=== PATIENT | female | born 1940 | race Caucasian/White ===

== ENCOUNTER → 2016-08-31 15:19 | Outpatient (CLI) | payer MEDICARE, BC ==
[2014-01-07 11:06] VITALS: BMI 28.0
[~2016-08-31 15:19] MED LIST: BAYER CHEWABLE81 MG PO; BENICAR HCT 40-1 TA1 PO; ELAVIL25 MG PO; LIPITOR10 MG PO; NORVASC10 MG PO; TENORMIN50 MG PO; ZOLOFT50 MG PO
== END | disposition home or self-care (01) ==
LOC: D.MRI 15:19
DX: M54.5 Low back pain (principal)

== ENCOUNTER → 2018-08-20 09:42 | Outpatient (CLI) | payer MEDICARE, BC ==
[2014-01-07 11:06] VITALS: BMI 28.0
[~2018-08-20 09:42] MED LIST changes: +HYDROCODON-ACE1 EA10 PO; +LOSARTAN/HCTZ 100-25; +METOPROLOL TART50 MG PO; +OMEPRAZOLE20 M1 PO; +ULTRAM50 MG PO
--- NOTE | 2018-08-22 15:13 | ST ---
PATIENT:ELIZABETH MCKOY MEDICAL RECORD: [id number] SEX: F LOCATION:[facility] ORDER #: ADMISSION DATE: 08/20/18 AGE OF PATIENT: 78 REFERRING PHYSICIAN: INTERPRETING PHYSICIAN: LUPIS EASTON MD DATE OF SERVICE: 08/20/2018 PROCEDURE: Nuclear stress test. INDICATION: Chest pain, coronary artery disease, hypertension, hyperlipidemia. She was exercised on standard Lexiscan protocol with 31 mCi of sestamibi injected at peak stress, 10 mCi were used previously for rest images. FINDINGS: Gated SPECT reveals preserved ejection fraction at 83% with good wall motion and thickening and brightening throughout all segments. SPECT imaging Cardiolite was used as myocardial fusion agent. There is homogeneous uptake throughout all segments at rest and stress with no evidence of inducible ischemia or previous infarction. OVERALL IMPRESSION: 1. This is a normal nuclear stress test with no evidence of inducible ischemia or previous infarction. 2. Gated SPECT reveals a preserved ejection fraction at 83%. In this patient with ongoing symptomatology, the current scan does not suggest the presence of hemodynamically significant coronary artery disease. Evaluate noncardiac etiology of chest pain. TRANSINT:[id number] Voice Confirmation ID: [id number] DOCUMENT ID: [id number] LUPIS EASTON MD at 1513 CC: PEPE WAITE MD [id number] DICTATION DATE: 08/20/18 1517 MASON HELPER: 08/21/18 0830 DEP CLI 08/20/18 [id number] [place] [address]
== END | disposition home or self-care (01) ==
LOC: D.HCCARDIO 09:42
PROVIDERS: ATTEND Internal Medicine Interventional Cardiology
DX: I25.10 Atherosclerotic heart disease of native coronary artery without angina pectoris (principal)

== ENCOUNTER 2018-11-20 05:45 | Day surgery (SDC) | payer MEDICARE, BC ==
[2018-11-19 11:02] LABS: HEMATOCRIT 41.8 % (36.0-48.0); HEMOGLOBIN 14.4 g/dL (12-16); MCH 29.6 pg (26.0-34.0); MCHC 34.4 g/dL (31.0-37.0); MCV 85.8 fL (80.0-100.0); MEAN PLATELET VOLUME 9.4 fL (7.4-10.4); RBC 4.87 10x6/uL (4.00-5.40); RDW 13.5 % (11.5-14.5); WBC 10.3 10x3/uL (4.8-10.8)
[~2018-11-20] VITALS: Ht 154.9 cm; Wt 66.7 kg
[~2018-11-20 05:45] MED LIST changes: -HYDROCODON-ACE1 EA10 PO
[2018-11-20 06:41] VITALS: BP 113/53; Ht 154.9 cm; Wt 66.7 kg
[2018-11-20] MEDS ORDERED: HYDROCODON-ACE1 EA10 PO (08:51)
--- NOTE | 2018-11-20 16:03 | NUR ---
1040 IV DC'D. CATHETER INTACT. NO BLEEDING AT SITE AFTER HOLDING PRESSURE. BANDAID APPLIED.
--- NOTE | 2018-11-27 11:53 | OP ---
PATIENT NAME: ELIZBAETH MCKOY MEDICAL RECORD: [id number] :38 LOCATION:[facility] ADMISSION DATE: SURGEON: MARIELLE BELLA MD DATE OF OPERATION: 11/20/2018 PREOPERATIVE DIAGNOSES: Rotator cuff tear of the left shoulder with impingement syndrome. POSTOPERATIVE DIAGNOSES: Rotator cuff tear of the left shoulder with impingement syndrome. PROCEDURES: 1. Arthroscopic rotator cuff repair. 2. Arthroscopic distal clavicle excision done through separate incision. 3. Arthroscopic subacromial decompression with acromioplasty and bursectomy. SURGEON: Marielle Bella MD ANESTHESIA: General. INTRAOPERATIVE COMPLICATIONS: None. SUMMARY OF PATHOLOGIC FINDINGS: The patient was indeed found to have a full thickness rotator cuff tear consistent the preoperative MRI. OPERATIVE SUMMARY IN DETAIL: After obtaining the appropriate preoperative orthopedic surgery consent as well as anesthetic consultation, evaluation and clearance, the patient was brought to the operating room and placed on the operating table in a supine position. After general laryngeal mask airway was administered, the patient was placed in a right lateral decubitus position. All pressure points were well padded to include down leg peroneal pad as well as axillary roll. The patient was held firmly to the operating table using the vacuum pack suction system. Left upper extremity and shoulder were then prepped and draped in routine sterile fashion. The arm was held in the [employer] traction boom at 30 degrees of forward flexion, 30 degrees of abduction with 10 pounds of traction laterally. At this point, the appropriate intraoperative timeout was taken and agreed upon by all using the appropriate patient identifiers. Having completed this, arthroscopy was established in the glenohumeral joint using a posterior portal. Anterior portal was established in the anterior safe interval. Diagnostic arthroscopy did reveal the patient's above diagnosis. Transrotator cuff portal was created for debridement of the rotator cuff on the articular aspect back to viable rotator cuff fibers. Attention was then turned to the subacromial space. While in the subacromial space, [place] tissue ablation system was utilized to denude the undersurface of the acromion of all soft tissue elements and release the coracoacromial ligament. A 5-0 barrel bur was used to perform acromioplasty at the level of acromioclavicular joint and then through a separate anterior arthroscopic portal, distal clavicle was excised for 1 cm under direct arthroscopic visualization. Lastly, the supraspinatus tendinous footprint was decorticated for good bleeding bone and a single horizontal mattress FiberTape was utilized to reapproximate the rotator cuff. This was anchored using a 5.5 SwiveLock from [employer]. Having completed this, arthroscopy portals were closed in routine interrupted fashion using 4-0 Prolene. Sterile dressings were applied. The patient was awakened and taken to recovery room in stable condition. All final needle and sponge counts were correct. OPERATIVE REPORT [id number] ELIZABETH MCKOY TRANSINT:[id number] Voice Confirmation ID: [id number] DOCUMENT ID: [id number] SHAYNE FRANCO, MARIELLE ANDREW at 1153 CC: [id number] DICTATION DATE: 11/27/18 1103 GRAPHICS PROGRAMMER: 11/27/18 1115 [facility] 11/20/18 [id number] [place] [address]
== END 2018-11-20 11:06 | disposition home or self-care (01) ==
LOC: D.OPS 05:45 → D.PAN 09:30 → D.OPS 09:30
PROVIDERS: Anesthesiology; ATTEND Orthopaedic Surgery
DX: M75.122 Complete rotator cuff tear or rupture of left shoulder, not specified as traumatic (principal); M75.42 Impingement syndrome of left shoulder; Z01.812 Encounter for preprocedural laboratory examination